=== PATIENT | male | born 2000 | race Caucasian/White ===

== ENCOUNTER → 2022-05-07 13:20 | Outpatient (CLI) | payer OTHER, SELFPAY ==
--- NOTE | ~2022-05-07 | MR_ITS ---
EXAMINATION: MR shoulder LT w con DATE: 05/07/2022 15:17 INDICATION: Left shoulder pain TECHNIQUE: Magnetic resonance imaging (MRI) of the left shoulder was performed following intra-artic ular gadolinium contrast injection and without intravenous contrast. Details of the glenohumeral join t injection have been dictated separately. Sequences included axial T2-weighted FS FSE, axial T1-dwight ghted FS FSE, coronal oblique T1-weighted FS FSE, coronal oblique T2-weighted FSE, sagittal T2-weight ed FS FSE, sagittal T1-weighted FSE, and ABER (abduction external rotation) T1-weighted FS FSE. COMPARISON: None. FINDINGS: Coracoacromial arch: The acromion undersurface is flat in morphology (type I). The coracoacromial ligament is normal. Acro mioclavicular joint is normal. Rotator cuff: The supraspinatus, infraspinatus and teres minor are normal. The subscapularis is normal. Normal rota tor cuff muscle bulk and signal. There is some contrast imbibition in the cephalad subscapularis musc le belly likely related to extravasation at the site of injection. Biceps tendon, glenoid labrum and glenohumeral cartilage: Long head of the biceps tendon is normal. There is a small tear at the chondral labral junction at th e 4-5:00 position of the anteroinferior glenoid evident only on the ABER images. Glenohumeral cartila ge is normal. Bones and other: Normal marrow signal with no edema, fracture or abnormal marrow replacing process. No abnormal fluid signal at the subacromial/subdeltoid bursa to suggest bursitis. IMPRESSION: 1. Small tear at the chondral labral junction at the anteroinferior glenoid. Otherwise normal left [facility] MRI arthrogram. Reviewed, dictated and finalized at location B. IMPRESSION: 1. Small tear at the chondral labral junction at the anteroinferior glenoid. Ot herwise normal left shoulder MRI arthrogram.
--- NOTE | ~2022-05-07 | XR_ITS ---
EXAMINATION: XR fl inj shoulder LT - MR/CT DATE: 05/07/2022 14:28 INDICATION: Left shoulder and axillary tightness TECHNIQUE: A time-out was performed to verify the patient's name, date of , and procedure to b e performed. The procedure including the risks, benefits, and alternatives was discussed with the pat ient. Risks discussed included bleeding and infection. The patient understood the risks and agreed to proceed. The skin overlying the rotator cuff interval of the left glenohumeral joint was prepped an d draped in usual sterile fashion. Anesthetic was administered with 1% lidocaine subcutaneously. A 22 G needle was advanced under fluoroscopic guidance into the joint. Injection of 1 mL of Omnipaque 240 confirmed intra-articular position of the needle. Subsequently, injectate consisting of 12 mL of 2:1:1 mixture of sterile saline:Omnipaque 240:1% lidocaine mixed 200:1 with 529 mg/mL Multihance sherly olinium contrast was injected with intra-articular administration confirmed with intermittent fluoros copy. The needle was removed and the entry site was cleaned and dressed. There were no immediate com plications. Fluoroscopy exposure time was 0.4 minutes. The total number of fluoroscopic images was 15 1. FINDINGS: Real-time fluoroscopy demonstrates the needle and contrast in the left glenohumeral joint. IMPRESSION: 1. Left glenohumeral joint injection of dilute gadolinium contrast mixture for subsequent MRI arthrog veronica which will be dictated separately. Reviewed, dictated and finalized at location B. IMPRESSION: 1. Left glenohumeral joint injection of dilute gadolinium contrast mixture for subsequent MRI arthrogram which will be dictated separately.
== END ==
DX: M25.512 Pain in left shoulder (principal)
CPT/HCPCS: 23350; 73222; A9577; Q9967